=== PATIENT | female | born 2000 | race Caucasian/White ===

== ENCOUNTER → 2019-05-29 | Outpatient (REF) | payer BC | LOC: M LAB REF 13:28 | PROVIDERS: ATTEND Orthopaedic Surgery Hand Surgery | DX: D48.5 Neoplasm of uncertain behavior of skin (principal) ==

== ENCOUNTER → 2019-08-14 | Outpatient (CLI) | payer BC ==
[~2019-08-14] MED LIST: ADDE15CA3 PO; AMPH1CAP15 PO; FLUO40CA PO; GUAN1TAB16 PO; HYDR-643 PO; KARI28TA PO; PROAAER10 INH
== END ==
LOC: M LABSMTC 10:04
PROVIDERS: ATTEND Anesthesiology
DX: Z01.818 Encounter for other preprocedural examination (principal); Z11.59 Encounter for screening for other viral diseases
CPT/HCPCS: C9803; U0002

== ENCOUNTER 2019-08-16 07:16 | Day surgery (SDC) | payer BC ==
[~2019-08-16] VITALS: Ht 162.6 cm; Wt 72.3 kg
[~2019-08-16 07:16] MED LIST changes: +LR 1,000 ML IV ONE; +ceFAZolin SOD 2 GM in IV 1 EA IV ONE
[2019-08-16] MEDS ORDERED: BUPIVACAINE/EPIN 0.25% 30 ML VIAL As Ordered ONE (08:27)
[2019-08-16] MEDS ORDERED: propofoL 200 MG/20 ML VIAL As Ordered ONE (09:25)
[2019-08-16] MEDS ORDERED: MIDAZOLAM INJ 2MG/2ML VIAL (J2250 PER 1MG) As Ordered ONE (09:25)
[2019-08-16] MEDS ORDERED: LIDOCAINE 2% 100MG/5ML SDV (FOR ANES.) As Ordered ONE (09:25)
[2019-08-16] MEDS ORDERED: ONDANSETRON 4MG/2ML VIAL As Ordered ONE (09:25)
[2019-08-16] MEDS ORDERED: dexameTHASONE 4 MG/ML 1ML VIAL (J1100 PER 1MG) As Ordered ONE (09:25)
[2019-08-16] MEDS ORDERED: fentaNYL 250 MCG/5 ML INJECTION (J3010) As Ordered ONE (09:25)
[2019-08-16] MEDS ORDERED: KETOROLAC 60 MG/2 ML VIAL As Ordered ONE (09:26)
[2019-08-16] MEDS ORDERED: PERCOCET 5MG/325MG TAB PO PRN (10:15)
[2019-08-16] MEDS ORDERED: fentaNYL 100 MCG/2 ML INJECTION (J3010) IV PRN (10:15)
[2019-08-16] MEDS ORDERED: ONDANSETRON 4MG/2ML VIAL IV PRN (10:15)
[2019-08-16] MEDS ORDERED: oxyCODONE 5MG TAB PO PRN (10:15)
[2019-08-16] MEDS ORDERED: MEPERIDINE INJ 25 MG/ML VIAL (J2175) IV PRN (10:15)
[2019-08-16 11:43] VITALS: BP 119/68
--- NOTE | 2019-08-16 16:32 | RO ---
DATE OF PROCEDURE: 08/16/2019 PREPROCEDURE DIAGNOSIS: Right unstable first dorsal extensor compartment, status post De Quervain's release. POSTPROCEDURE DIAGNOSIS: Right unstable first dorsal extensor compartment, status post De Quervain's release. PROCEDURE: Right wrist reconstruction of the first dorsal extensor compartment with flexor tendon autograft. SURGEON: Papa Baker MD NETWORK CABLER: ANESTHESIA: INDICATIONS: A 18-year-old female that underwent a first dorsal extensor compartment release for De Quervain's approximately 5-6 months ago, subsequently developed unstable compartment, had significant snapping, sharp pain that was progressive despite conservative measures. Therefore, we discussed the risks and benefits, including, but not limited to, infection, damage to surrounding structures, incomplete relief and stiffness for revision surgery to recreate the sheath. Patient and mother expressed understanding and agreement with that plan. PREOPERATIVE ANTIBIOTICS: 2 grams of Ancef. BLOOD LOSS: Minimal. TOURNIQUET TIME: 43 minutes. COMPLICATIONS: None. IMPLANT: 2.4 mm SutureTak Arthrex Bally loaded with #3-0 FiberWire. BLOOD LOSS: Minimal. DESCRIPTION OF PROCEDURE: The patient was brought to the operating room in the supine position, underwent general anesthesia, at which point the right arm was prepped and draped in the usual fashion. We then had a time-out confirming site, side and surgery. Once all in agreement, injected 20 mL of 0.25% Marcaine with epinephrine surrounding the incision. We then used the previous transverse incision over the radial styloid and extended it dorsally approximately 1 cm and extended it volarly with a 45-degree angle proximally, at which point we sharply dissected through subcutaneous tissues, careful to identify and preserve the superficial extensor branch of the radial nerve. Identified the abductor pollicis longus (APL) and extensor pollicis brevis (EPB), at which point we then proceeded proximally to identify the brachial radialis at the base of the first compartment. We isolated it and split the tendon in half, taking a volar slip with approximately 3-4 cm of tendon. We then, at that point, prepped our anchor area using a curette to prep the distal radius at the base of the dorsal insertion of the sheath. We then drilled our hole for our 2.4 Arthrex SutureTak anchor and placed it in place, at which point we then used the #3-0 FiberWire to secure the brachial radialis graft on the dorsal extent. This was secured quite nicely. We then used the remaining #3-0 FiberWire suture to reinforce with the remnant of the dorsal slip of the extensor compartments and volarly with a volar slip of the extensor compartment. At this point, we were very happy with the ability of our tendons within the groove. There was no more volar subluxation with wrist flexion, thumb abduction or through manual manipulation of the tendons. They were well seated within the channel. We were also able to pass an elevator easily underneath the new compartment without significant impingement. We also safely identified the superficial radial branch nerve basically outside of the compartment, at which point we were happy with this. We irrigated the wound thoroughly, closed with #3-0 Vicryl, #3-0 nylon, placed a dressing of Adaptic gauze, sterile Webril, and a thumb spica splint. Tourniquet was let down. Patient was awakened and taken to the post-anesthesia care unit (PACU) in stable condition. POSTOPERATIVE PLAN: Patient will remain in the splint for approximately 2 weeks, at which point we will check the incision. We will then convert over to removal of thumb spica brace that she should be wearing near full time staff interpreter except for gentle exercising, avoiding any sort of forceful wrist flexion with thumb abduction for approximately 3 months. Patient and mother expressed understanding and agreement with that plan ahead of time.
== END 2019-08-16 11:46 | disposition home or self-care (01) ==
LOC: M SDC 07:16
PROVIDERS: ATTEND Orthopaedic Surgery Hand Surgery
DX: M65.841 Other synovitis and tenosynovitis, right hand (principal); G43.909 Migraine, unspecified, not intractable, without status migrainosus; J45.909 Unspecified asthma, uncomplicated; Z79.899 Other long term (current) drug therapy; F32.9 Major depressive disorder, single episode, unspecified; F90.9 Attention-deficit hyperactivity disorder, unspecified type; F41.9 Anxiety disorder, unspecified
CPT/HCPCS: 25274; 81025; C1713; J0690; J1100; J1885; J2250; J2405; J3010